=== PATIENT | male | born 1980 | race Caucasian/White ===

== ENCOUNTER 2017-10-09 18:58 | Emergency (ER) | payer OTHER ==
[~2017-10-09] VITALS: Ht 167.6 cm; Wt 82.0 kg
[2017-10-09] MEDS ORDERED: LIDODERM 5% P1 PATCH TD (20:20)
[2017-10-09] MEDS ORDERED: MOTRIN800 MG PO (20:20)
[2017-10-09] MEDS ORDERED: FLEXERIL10 MG PO (20:20)
[2017-10-09 20:36] VITALS: BP 130/74
== END 2017-10-09 20:36 | disposition home or self-care (01) ==
LOC: EME 18:58
DX: S46.911A Strain of unspecified muscle, fascia and tendon at shoulder and upper arm level, right arm, initial encounter (principal); M62.838 Other muscle spasm; X58.XXXA Exposure to other specified factors, initial encounter; Y99.0 Civilian activity done for income or pay
CPT/HCPCS: 73030; 99281; 99283